=== PATIENT | female | born 1960 | race Caucasian/White ===

== ENCOUNTER → 2019-06-02 08:52 | Outpatient (CLI) | payer OTHER, SELFPAY ==
--- NOTE | ~2019-06-02 | MM_ITS ---
EXAMINATION: MM screening cheryl BI w carolyn HISTORY: Screening mammogram TECHNIQUE: Craniocaudal and mediolateral oblique 3-D tomosynthesis images were obtained and synthetic 2-D images were generated. CAD analysis was submitted and interpreted. COMPARISON: No prior mammogram is available for comparison at this institution. BREAST PARENCHYMAL COMPOSITION: There are scattered areas of fibroglandular density. FINDINGS: There is fibroglandular asymmetry, likely related to history of prior bilateral breast redu ction surgery. Comparison to prior mammogram examinations is recommended to confirm stability of the presumed postoperative fibroglandular asymmetry. There is no evidence of suspicious mass, calcificati on, or architectural distortion to suggest malignancy in either breast. There has been no suspicious interval change. IMPRESSION: 1. No mammographic evidence of malignancy; probable postoperative fibroglandular asymmetry. 2. Recommend comparison with prior mammogram examinations. BI-RADS Category 0: Incomplete: Needs additional imaging evaluation. Reviewed, dictated and finalized at location A. IC AFFAIRS MANAGER IMPRESSION: 1. No mammographic evidence of malignancy; probable postoperative fibroglandula r asymmetry. 2. Recommend comparison with prior mammogram examinations. BI-RADS Category 0: Incomplete: Needs additional imaging evaluation.
== END ==
PROVIDERS: PCP Family Medicine; Visit Provider Family Medicine
DX: Z12.31 Encounter for screening mammogram for malignant neoplasm of breast (principal); R92.8 Other abnormal and inconclusive findings on diagnostic imaging of breast
CPT/HCPCS: 77063; 77067

== ENCOUNTER 2020-02-06 00:52 | Outpatient (CLI) | payer OTHER, SELFPAY ==
[2020-02-07 03:00] LABS: SARS-CoV-2 RNA PCR Negative
== END 2020-02-06 00:53 | disposition home or self-care (01) ==
LOC: ANHCOVIDDT 00:52
PROVIDERS: PCP Family Medicine; Visit Provider Internal Medicine Gastroenterology
DX: Z01.812 Encounter for preprocedural laboratory examination (principal); Z20.828 Contact with and (suspected) exposure to other viral communicable diseases
CPT/HCPCS: 87635; C9803; U0003

== ENCOUNTER 2020-02-08 01:28 | Day surgery (SDC) | payer OTHER, SELFPAY ==
[2020-02-04 12:46] VITALS: BMI 29.2
[2020-02-08 08:37] VITALS: BP 104/62; PULSE 71; RESP 18; TEMP 35.7; O2SAT 99
--- NOTE | 2020-02-08 08:53 | WPDANESEPPF ---
Anes - Initial Pre Proc Eval Procedure: Operation Date: 02/08/20 09:30 Proposed Procedures p Screening Colonoscopy - Tono Cheng MD Date/Time: 02/08/20 08:53 Surgeon: Tono Cheng MD Pre Op Diagnosis: neoplasm screening Patient Data Age: 59 Gender: F Height: 5 ft 3 in Weight: 76 kg Last Vital Signs Temp 35.7 C L 02/08/20 08:37 Pulse 71 02/08/20 08:37 Resp 18 02/08/20 08:37 BP 104/62 02/08/20 08:37 Pulse Ox 99 02/08/20 08:37 Allergies Allergy/AdvReac Type Severity Reaction Status Date / Time No Known Allergies Allergy Severe Verified 02/08/20 08:36 Home Medications Medication Instructions Recorded Confirmed Type aspirin 81 mg chewable tablet 81 mg PO DAILY 03/06/19 02/04/20 History cholecalciferol (vitamin D3) 25 1,000 unit PO DAILY 03/06/19 02/04/20 History mcg (1,000 unit) capsule sertraline 25 mg tablet See Rx Instructions .ROUTE 12/31/19 02/04/20 Rx .COMPLEX #30 tablet Synthroid 100 mcg tablet 100 mcg PO DAILY #90 tablet NS 01/03/20 02/04/20 Rx ezetimibe 10 mg tablet 10 mg PO DAILY #90 tablet 01/03/20 02/04/20 Rx hydrochlorothiazide 12.5 mg tablet 12.5 mg PO DAILY #90 tablet 01/03/20 02/04/20 Rx omeprazole 40 mg capsule,delayed 40 mg PO DAILY #90 cap 01/03/20 02/04/20 Rx release oxybutynin chloride 5 mg tablet 5 mg PO BID-TID #90 tablet 02/04/20 Rx bupropion HCl 300 mg 24 hr tablet, See Rx Instructions .ROUTE 02/07/20 Rx extended release .COMPLEX #90 tablet Patient hx anesthesia problems: none Family hx anesthesia problems: none PMFSH Past Medical History Medical History (Updated 01/03/20 @ 16:28 by Aurelia Gordon MD) Chronic GERD Surgical History Surgical History (Updated 02/08/20 @ 09:14 by Kris Nelson MD) History of endometrial ablation Family History Family History Sibling Family history of chronic obstructive pulmonary disease Father Family history of lung cancer, Onset Age: 65 Patient's father is Mother Family history of malignant neoplasm of breast in first degree relative, Onset Age: 62 Patient's mother is Sibling Patient's sister is , Onset Age: 62 Family history of alcoholism, Onset Age: 51 Family history of chronic obstructive pulmonary disease Father Family history of lung cancer, Onset Age: 62 Mother Family history of malignant neoplasm of breast in first degree relative, Onset Age: 65 Social History Social History Smoking status: Never smoker Alcohol intake: current Drinks per week: 1 Substance use: never Substance use type: does not use Living arrangements: with family Spiritual care concerns: No Anes - Eval Final PreProcedure Day of Procedure 02/08/20 08:53 Patient weight: overweight Heart: regular rate and rhythm Lungs: clear to auscultation Airway: Mallampati scale class 1 Neurological: alert and oriented Last oral intake: >/= 8 hours ASA classification: II Emergent: no Anesthetic plan: proceed Anesthesia type and monitoring: general GIVS and standard monitoring Informed Consent: The patient's anesthetic plan and its attendant risks and benefits were discussed with the patient/family/POA. Questions were solicited and answers provided to the satisfaction of the patient/family/POA.
[2020-02-08] MEDS: LACTATED RINGERS 1,000 ML 150 ML IV CONT (08:54)
--- NOTE | 2020-02-08 09:18 | WPDGICN ---
Assessment and Plan Assessment and plan (1) Encounter for screening colonoscopy: Code(s): Z12.11 - Encounter for screening for malignant neoplasm of colon Status: Acute Assessment and Plan: Patient appears to be at average risk for colon polyps. Plan is for screening colonoscopy at this time. Last exam was 10 years ago. GI Consult Note Consult date/time: 02/08/20 09:18 HPI: Kristyn Brennan is a 59 year old female Seen in evaluation at the request of Dr. Gordon. Patient presents for screening colonoscopy. She states her current weight appetite bowel movements are normal. She denies abdominal pain. She has had no bleeding. Family history is noncontributory. Review of Systems Review of Systems: All systems reviewed & are unremarkable except as noted in HPI and below PMFSH Past Medical History Medical History (Updated 02/08/20 @ 09:19 by Tono Cheng MD) Chronic GERD Surgical History Surgical History (Updated 02/08/20 @ 09:14 by Kris Nelson MD) History of endometrial ablation Family History Family History Sibling Family history of chronic obstructive pulmonary disease Father Family history of lung cancer, Onset Age: 65 Patient's father is Mother Family history of malignant neoplasm of breast in first degree relative, Onset Age: 62 Patient's mother is Sibling Patient's sister is , Onset Age: 62 Family history of alcoholism, Onset Age: 51 Family history of chronic obstructive pulmonary disease Father Family history of lung cancer, Onset Age: 62 Mother Family history of malignant neoplasm of breast in first degree relative, Onset Age: 65 Social History Social History Smoking status: Never smoker Alcohol intake: current Drinks per week: 1 Substance use: never Substance use type: does not use Living arrangements: with family Spiritual care concerns: No Meds Home Medications and Allergies Home Medications Medication Instructions Recorded Confirmed Type aspirin 81 mg chewable tablet 81 mg PO DAILY 03/06/19 02/04/20 History cholecalciferol (vitamin D3) 25 1,000 unit PO DAILY 03/06/19 02/04/20 History mcg (1,000 unit) capsule sertraline 25 mg tablet See Rx Instructions .ROUTE 12/31/19 02/04/20 Rx .COMPLEX #30 tablet Synthroid 100 mcg tablet 100 mcg PO DAILY #90 tablet NS 01/03/20 02/04/20 Rx ezetimibe 10 mg tablet 10 mg PO DAILY #90 tablet 01/03/20 02/04/20 Rx hydrochlorothiazide 12.5 mg tablet 12.5 mg PO DAILY #90 tablet 01/03/20 02/04/20 Rx omeprazole 40 mg capsule,delayed 40 mg PO DAILY #90 cap 01/03/20 02/04/20 Rx release oxybutynin chloride 5 mg tablet 5 mg PO BID-TID #90 tablet 02/04/20 Rx bupropion HCl 300 mg 24 hr tablet, See Rx Instructions .ROUTE 02/07/20 Rx extended release .COMPLEX #90 tablet Allergies Allergy/AdvReac Type Severity Reaction Status Date / Time No Known Allergies Allergy Severe Verified 02/08/20 08:36 Vital Signs Vital Signs - 24 hr 02/08/20 08:37 Temperature 96.2 F L Pulse Rate 71 Respiratory Rate 18 Blood Pressure 104/62 Pulse Oximetry 99 Exam Narrative: Exam Narrative: Physical exam reveals patient to be alert. Vital signs stable. HEENT exam unremarkable. Lungs are clear to auscultation and percussion. Heart is without murmur or extra sounds. Abdominal exam bowel sounds are present soft nontender with no hepatosplenomegaly. Digital external rectal exam is normal.
[2020-02-08 09:49] VITALS: BP 108/62; PULSE 74; RESP 18; O2SAT 100
[2020-02-08 09:59] VITALS: BP 122/64; PULSE 64; RESP 20; O2SAT 99
[2020-02-08 10:09] VITALS: BP 128/60; PULSE 75; RESP 20; O2SAT 99
== END 2020-02-08 10:23 | disposition home or self-care (01) ==
PROVIDERS: PCP Family Medicine; Visit Provider Internal Medicine Gastroenterology
PROC: 0DJD8ZZ Inspection of Lower Intestinal Tract, Via Natural or Artificial Opening Endoscopic (ICD-10-PCS; CPT 45378; principal; 2020-02-08 09:30)
DX: Z12.11 Encounter for screening for malignant neoplasm of colon (principal); K57.30 Diverticulosis of large intestine without perforation or abscess without bleeding; K21.9 Gastro-esophageal reflux disease without esophagitis; K64.8 Other hemorrhoids
CPT/HCPCS: 45378; J2704; J7120

== ENCOUNTER → 2020-10-03 16:48 | Outpatient (CLI) | payer OTHER, SELFPAY ==
--- NOTE | ~2020-10-03 | MM_ITS ---
EXAMINATION: MM screening cheryl BI w carolyn HISTORY: Screening mammogram, family history of breast cancer in her mother. TECHNIQUE: Craniocaudal and mediolateral oblique 3-D tomosynthesis images were obtained and synthetic 2-D images were generated. CAD analysis was submitted and interpreted. COMPARISON: 06/02/2019, 04/21/2018 BREAST PARENCHYMAL COMPOSITION: There are scattered areas of fibroglandular density. FINDINGS: There is no evidence of suspicious mass, calcification, or architectural distortion to sugg est malignancy in either breast. There has been no suspicious interval change. IMPRESSION: 1. No mammographic evidence of malignancy. 2. Recommend routine screening mammography in one year. BI-RADS Category 1: Negative Reviewed, dictated and finalized at location A.
== END ==
PROVIDERS: PCP Family Medicine; Visit Provider Family Medicine
DX: Z12.31 Encounter for screening mammogram for malignant neoplasm of breast (principal)
CPT/HCPCS: 77063; 77067

== ENCOUNTER → 2022-02-16 10:24 | Outpatient (CLI) | payer OTHER, SELFPAY ==
--- NOTE | ~2022-02-16 | MM_ITS ---
EXAMINATION: MM screening cheryl BI w carolyn HISTORY: Screening TECHNIQUE: Craniocaudal and mediolateral oblique 3-D tomosynthesis images were obtained and synthetic 2-D images were generated. CAD analysis was submitted and interpreted. COMPARISON: Comparison to multiple prior studies sequentially, with oldest reviewed study dated 04/15. BREAST PARENCHYMAL COMPOSITION: Breast composed of scattered areas of fibroglandular density FINDINGS: There is no evidence of suspicious mass, calcification, or architectural distortion to sugg est malignancy in either breast. There has been no suspicious interval change. IMPRESSION: 1. No mammographic evidence of malignancy. 2. Recommend routine screening mammography in one year. BI-RADS Category 1: Negative Reviewed, dictated and finalized at location A. PLAY ENGINEER
== END ==
PROVIDERS: PCP Family Medicine; Visit Provider Family Medicine
DX: Z12.31 Encounter for screening mammogram for malignant neoplasm of breast (principal)
CPT/HCPCS: 77063; 77067

== ENCOUNTER → 2022-02-18 09:56 | Outpatient (CLI) | payer OTHER, SELFPAY ==
--- NOTE | ~2022-02-18 | DEXA_ITS ---
Bone Density Report Name: RIMMA SCHWARTZ Age: 61 Sex: Female Ethnicity: White Date of : 1960 Indication: postmenopausal; screening for osteoporosis; Referring Provider: Kranthi Choi Study: Bone densitometry was performed. Exam Date: February 18, 2022 Accession number: [id number] Bone Density: Region BMD T-score Z-score Classification AP Spine (L1-L4) 0.879 -1.5 0.0 Osteopenia Femoral Neck (Left) 0.731 -1.1 0.3 Osteopenia Total Hip (Left) 0.987 0.4 1.4 Normal Femoral Neck (Right) 0.683 -1.5 -0.1 Osteopenia Total Hip (Right) 0.936 0.0 1.0 Normal Total Hip Mean 0.962 0.2 1.2 Normal World Health Organization criteria for BMD impression classify patients as: Normal (T-score at or above -1.0), Osteopenia (T-score between -1.0 and -2.5), or Osteoporosis (T-score at or below -2.5). 10-year Fracture Risk(1): Major Osteoporotic Fracture 8.1% Hip Fracture 0.7% Reported Risk Factors: [place] (), Neck BMD=0.683, BMI=32.4 (1) FRAX(R) Version 3.08. Fracture probability calculated for an untreated patient. Fracture probability may be lower if the patient has received treatment. Clinical Information Provided by Patient: Has used the following medications: Vitamin D Patient maximum height was 63 Menopause Age: 44 No regular weight bearing exercise Drinks caffeinated beverages Onset of menses at age 13 Number of children 1 Impression: The patient has low bone mass, based on the Total Spine T-score. The patient has an estimated ten-year risk of hip fracture of 0.7% and an estimated ten-year risk of major fracture of 8.1%, based on the WHO FRAX algorithm. Discussion: BONE DENSITY IS LOW AT ONE OR MORE SKELETAL SITES. This patient's lowest T-score is low at one or more skeletal sites. It meets the World Health Organization's (WHO) criteria for ?low bone mass? (T-score between -1.0 and -2.5). The patient's 10-year risk of fracture as calculated by FRAX is less than the threshold where pharmacological therapy is recommended by the National Osteoporosis Foundation (NOF). However, all treatment decisions require clinical judgment and consideration of individual patient factors, including patient preferences, comorbidities, previous drug use, risk factors not captured in the FRAX model (e.g., frailty, falls, vitamin D deficiency, increased bone turnover, interval significant decline in bone density) and possible under or overestimation of fracture risk by FRAX. The patient should follow a healthful lifestyle (good nutrition with adequate calcium and vitamin D, and appropriate weight-bearing exercise). Follow-Up: Consider repeating this study in 2 to 3 years to reassess this patient's status, or sooner if there is some new clinical indication. Reported by: CORNELIO on 02/18/2022 10:14:00 AM.
== END ==
PROVIDERS: PCP Family Medicine; Visit Provider Physician Assistant
DX: Z78.0 Asymptomatic menopausal state (principal); M85.88 Other specified disorders of bone density and structure, other site; M85.852 Other specified disorders of bone density and structure, left thigh; M85.851 Other specified disorders of bone density and structure, right thigh
CPT/HCPCS: 77080

== ENCOUNTER 2022-08-31 10:17 | Outpatient (CLI) | payer OTHER, SELFPAY ==
[2022-08-31 11:25] LABS: Kit Draw Collected
== END 2022-08-31 10:18 | disposition home or self-care (01) ==
LOC: ANHGOSHLAB 10:18
PROVIDERS: PCP Family Medicine; Visit Provider Family Medicine
DX: R73.03 Prediabetes (principal); E03.9 Hypothyroidism, unspecified; E55.9 Vitamin D deficiency, unspecified
CPT/HCPCS: 36415

== ENCOUNTER 2023-09-09 10:00 | Outpatient (CLI) | payer OTHER, SELFPAY ==
--- NOTE | ~2023-09-09 | XR_ITS ---
Clinical Indication: Chronic cough PA and lateral views of the chest: Comparison: 04/08/2008 Findings: The lungs are clear, without evidence of focal consolidation or pleural effusion. Cardiome diastinal silhouette is within normal limits. Bones and soft tissues are unremarkable. Impression: Normal chest. Reviewed, dictated and finalized at location . Impression: Normal chest.
== END 2023-09-09 10:01 ==
PROVIDERS: PCP Family Medicine; Visit Provider Family Medicine
DX: R05.3 Chronic cough (principal)
CPT/HCPCS: 71046

== ENCOUNTER 2023-09-27 10:05 | Outpatient (CLI) | payer OTHER, SELFPAY ==
--- NOTE | ~2023-09-27 | XR_ITS ---
Left Hand Technique: PA, oblique, and lateral views were obtained. Clinical History: Osteoarthritis Findings: No acute fracture or dislocation is seen. Osseous alignment is anatomic. Joint spaces are p reserved. Soft tissues are unremarkable. Impression: Unremarkable left hand. Reviewed, dictated and finalized at location M. Impression: Unremarkable left hand.
== END 2023-09-27 10:06 | disposition home or self-care (01) ==
LOC: ANHIMG 10:07
PROVIDERS: PCP Family Medicine; Visit Provider Plastic Surgery
DX: M18.12 Unilateral primary osteoarthritis of first carpometacarpal joint, left hand (principal)
CPT/HCPCS: 73130

== ENCOUNTER 2024-03-07 10:46 | Outpatient (CLI) | payer OTHER, SELFPAY ==
--- NOTE | ~2024-03-07 | MM_ITS ---
EXAMINATION: MM screening cheryl BI w carolyn HISTORY: Screening TECHNIQUE: Craniocaudal and mediolateral oblique 3-D tomosynthesis images were obtained and synthetic 2-D images were generated. CAD analysis was submitted and interpreted. COMPARISON: Comparison to multiple prior studies sequentially, with oldest reviewed study dated 04/15. BREAST PARENCHYMAL COMPOSITION: Not dense: There are scattered areas of fibroglandular density. FINDINGS: There is no evidence of suspicious mass, calcification, or architectural distortion to sugg est malignancy in either breast. There has been no suspicious interval change. IMPRESSION: 1. No mammographic evidence of malignancy. 2. Recommend routine screening mammography in one year. BI-RADS Category 1: Negative Reviewed, dictated and finalized at location B. 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
== END 2024-03-07 10:47 | disposition home or self-care (01) ==
LOC: MICIMG 10:48
PROVIDERS: PCP Family Medicine; Visit Provider Family Medicine
DX: Z12.31 Encounter for screening mammogram for malignant neoplasm of breast (principal)
CPT/HCPCS: 77063; 77067

== ENCOUNTER 2024-09-24 08:50 | Outpatient (CLI) | payer OTHER, SELFPAY | END 2024-09-24 08:51 | disposition home or self-care (01) | LOC: ANHAUDIO 08:50 | PROVIDERS: PCP Family Medicine; Visit Provider Family Medicine | DX: H90.42 Sensorineural hearing loss, unilateral, left ear, with unrestricted hearing on the contralateral side (principal) | CPT/HCPCS: 92557; 92567 ==

== ENCOUNTER 2025-03-06 08:12 | Outpatient (CLI) | payer MEDICARE, SELFPAY ==
--- NOTE | ~2025-03-06 | DEXA_ITS ---
Bone Density Report Name: RIMMA SCHWARTZ Age: 64 Sex: Female Ethnicity: White Date of : 1960 Indication: osteopenia; Referring Provider: LUAN ALONSO Study: Bone densitometry was performed. Exam Date: March 06, 2025 Accession number: [id number] Bone Density: Region BMD T-score Z-score Classification AP Spine(L1-L4) 0.798 -2.3 -0.5 Osteopenia Femoral Neck (Left) 0.679 -1.5 0.0 Osteopenia Total Hip (Left) 0.925 -0.1 1.1 Normal Femoral Neck (Right) 0.631 -2.0 -0.4 Osteopenia Total Hip (Right) 0.862 -0.7 0.6 Normal Total Hip Mean 0.894 -0.4 0.9 Normal World Health Organization criteria for BMD impression classify patients as: Normal (T-score at or above -1.0), Osteopenia (T-score between -1.0 and -2.5), or Osteoporosis (T-score at or below -2.5). 10-year Fracture Risk(1): Major Osteoporotic Fracture 11% Hip Fracture 1.5% Reported Risk Factors: [place] (), Neck BMD=0.631, BMI=25.2 (1) FRAX(R) Version 3.08. Fracture probability calculated for an untreated patient. Fracture probability may be lower if the patient has received treatment. Previous Exams: Region Exam Age BMD T-score BMD Change BMD Change Date g/cm2 vs Baseline vs Previous AP Spine (L1-L4) 03/06/2025 64 0.798 -2.3 -0.081 (-9.2%) -0.081 (-9.2%) 02/18/2022 61 0.879 -1.5 Total Hip(Left) 03/06/2025 64 0.925 -0.1 -0.062 (-6.3%) -0.062 (-6.3%) 02/18/2022 61 0.987 0.4 Total Hip(Right) 03/06/2025 64 0.862 -0.7 -0.074 (-7.9%) -0.074 (-7.9%) 02/18/2022 61 0.936 0.0 *Denotes significance at 95% confidence level, LSC for AP Spine = 0.022 g/cm2, LSC for Total Hip = 0.027 g/cm2 Clinical Information Provided by Patient: Has used the following medications: Vitamin D Patient maximum height was 63 Menopause Age: 44 No regular weight bearing exercise Drinks caffeinated beverages Onset of menses at age 13 Number of children 1 Impression: The patient has low bone mass, based on the Total Spine T-score. The patient has an estimated ten-year risk of hip fracture of 1.5% and an estimated ten-year risk of major fracture of 11%, based on the WHO FRAX algorithm. The BMD for the AP Spine (L1-L4) decreased, changing by -9.2% since the last DXA exam. The BMD for the Total Hip(Left) decreased, changing by -6.3% since the last DXA exam. The BMD for the Total Hip(Right) decreased, changing by -7.9% since the last DXA exam. Discussion: BONE DENSITY IS LOW AT ONE OR MORE SKELETAL SITES. This patient's lowest T-score is low at one or more skeletal sites. It meets the World Health Organization's (WHO) criteria for ?low bone mass? (T-score between -1.0 and -2.5). The patient's 10-year risk of fracture as calculated by FRAX is less than the threshold where pharmacological therapy is recommended by the National Osteoporosis Foundation (NOF). However, all treatment decisions require clinical judgment and consideration of individual patient factors, including patient preferences, comorbidities, previous drug use, risk factors not captured in the FRAX model (e.g., frailty, falls, vitamin D deficiency, increased bone turnover, interval significant decline in bone density) and possible under or overestimation of fracture risk by FRAX. The patient should follow a healthful lifestyle (good nutrition with adequate calcium and vitamin D, and appropriate weight-bearing exercise). Follow-Up: Consider repeating this study in 2 years to reassess this patient's status, or sooner if there is some new clinical indication. Reported by: BELINDA on 03/06/2025 8:54:00 AM. Reviewed, dictated and finalized at location A.
--- OUTSIDE RECORDS SUMMARY | 2025-03-06 08:24 | XMS_ITS | Clinical Summary ---
Author Organization [facility] Address [address] [place] [address] Care Team Providers Care Web Developer Programmer Name Role Phone Unavailable Primary Care Provider Unavailabl e Source Comments [facility],non-owned Affiliates and Associated Physician Practices is amultiple site organization consisting of ambulatory clinics and hospital sitesin [place], [place]. This disclosure is being madepursuant to the Care Everywhere program and may not contain all information available regarding this patient. Last updated 17.[facility] Social History Tobacco Use Types Packs/Day Years Used Date Smoking Tobacco: Never Assessed Comments Unknown Sex and Gender Information Value Date Recorded Sex Assigned at Not on file Legal Sex Female 9:25 AM CDT Gender Identity Not on file Sexual Orientation Not on file Plan of Treatment Health Maintenance Due Date Last Done Comments BONE DENSITY TESTING 1960 COLOGUARD (AGES 45-75) - COL ON CA SCREENING 1960 COLON MONITORING 1960 COLONOSCOPY - COLON CA SCREENING 1960 CT COLONOGRAPHY - COLON CA SCREENING 1960 Colorectal Cancer Screening 1960 FIT - COLON CA SCREENING 1960 FLEX SIG - COLON CA SCREENING 1960 LIPID TESTING 1960 MAMMOGRAM 1960 HIV SCREENING 12/01/1974 HEPATITIS C SCREENING 11/27/1977 DTAP/TDAP/TD VACCINES (1 - Tdap) 12/01/1978 Cervical Cancer Screening 12/01/1980 PAP SMEAR 12/01/1980 PAP with HPV 12/01/1989 PNEUMOCOCCAL VACCINE 50+ (1 of 1 - PCV) 12/01/2009 ZOSTER VACCINE (1 of 2) 12/01/2009 DEPRESSION SCREENING 04/04/2024 COVID-19 VACCINE ( - 2024-2 6 season) 2024 INFLUENZA VACCINE (#1) 2024 Respiratory Syncytial Virus (RSV) Vaccine Pt: or over 60 yrs (1 - 1-dose 75+ series) 12/01/2034 HEPATITIS B VACCINE Aged Out No longe r eligible based on patient's age to complete this topic HIB VACCINE Aged Out No longer eligi ble based on patient's age to complete this topic HPV VACCINE Aged Out No longer eligi ble based on patient's age to complete this topic MENINGOCOCCAL (Group B) VACC INE SHARED DECISION-MAKING Aged Out No longer eligibl e based on patient's age to complete this topic MENINGOCOCCAL GROUPS A/C/Y/W VACCINE Aged Out No longer eligible b ased on patient's age to complete this topic Insurance [employer]
--- OUTSIDE RECORDS SUMMARY | 2025-03-06 08:24 | XMS_ITS | Clinical Summary ---
Author Organization [facility] Address [address] [place]: Epic Prelude ADT [place] [address] Care Team Providers Care Correctional Agency Director Name Role Phone Unavailable Primary Care Provider Unavailabl e Social History Tobacco Use Types Packs/Day Years Used Date Smoking Tobacco: Never Assessed Comments Unknown Sex and Gender Information Value Date Recorded Sex Assigned at Not on file Legal Sex Female 4:46 AM SPINNER HAND Gender Identity Not on file Sexual Orientation Not on file Plan of Treatment Health Maintenance Due Date Last Done Comments DTAP/TDAP/TD VACCINES (1 - Tdap) 12/01/1978 BREAST CANCER SCREENING 1999 COLORECTAL SCREENING 12/01/2004 Colorectal Cancer Screening 12/01/2004 FIT-DNA Q 3 years 12/01/2004 FIT/FOBT Q 1 year 12/01/2004 Flex Sig/CT Colonography Q 5 years 12/01/2004 PNEUMOCOCCAL VACCINE 50+ YEARS (1 of 1 - PCV) 12/02/19 10 ZOSTER VACCINE (1 of 2) 12/01/2009 INFLUENZA VACCINE (#1) 2024 OSTEOPOROSIS SCREENING 12/01/2024 RSV VACCINE (60+ or ) (1 - 1-dose 75+ series) 12/01/2034
--- OUTSIDE RECORDS SUMMARY | 2025-03-06 08:24 | XMS_ITS | Encounter Summary ---
Author Organization [facility] Address [address] [place] [address] Care Team Providers Care Landscape Designer Name Role Phone Unavailable Primary Care Provider Unavailabl e Encounter Details Date Type Department Care Team (Late st Contact Info) Description 09/28/2023 Lab Requisition [facility] - DermPath Lab [address] [place] [address] Reginald Ingram MD [facility] DERMAT[facility] [address] [place] [phone] Neoplasm of uncertain behavior of skin Social History Tobacco Use Types Packs/Day Years Used Date Smoking Tobacco: Never Assessed Comments Unknown Sex and Gender Information Value Date Recorded Sex Assigned at Not on file Legal Sex Female 9:25 AM CDT Gender Identity Not on file Sexual Orientation Not on file documented as of this encounter Plan of Treatment Not on file documented as of this encounter Procedures Procedure Name Priority Date/Time Associated Diagnosis Comments DERMATOPATHOLOGY Routine 09/28/2023 3:33 AM CDT Neoplasm of uncertain behavior of skin documented in this encounter Results * DERMATOPATHOLOGY (09/28/2023 3:33 AM CDT) Case Report Dermatopathology Report Case: [id number] Authorizing Provider: Reginald Ingram MD Collected: 09/28/2023 03:33 AM Ordering Location: [facility] - Received: 09/29/2023 07:51 AM DermPath Lab Pathologist: Annetta Galvez MD Specimen: Skin, right forearm 11:35 AM CDT DERMATOPATHOLOGY LABORATORY Final Diagnosis Specimen A. 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 The specimen consists of a shave biopsy measuring 8x8x1 mm. Jar 0. 11:35 AM CDT DERMATOPATHOLOGY LABORATORY Microscopic Description Specimen A. SKIN, right forearm: Sections show an epidermis thickened by a proliferation of keratinocytes, some of which have enlarged nuclei, with increased mitotic figures, and some neoplastic cells have pigmented cytoplasms. 11:35 AM CDT DERMATOPATHOLOGY LABORATORY Disclaimer An external and internal positive and negative controls are appropriate for the histochemical, immunohistochemical and immunofluorescence stain(s) in this case (if any), except where stated explicitly. The performance characteristics of the stain(s) cited in this report were developed and its performance characteristic determined by the Dermatopathology Laboratory at [facility], directed by Dr. Lynsey Howell. These tests need not be, and therefore are not, approved by the [place] Food and Drug Administration. The tests are used for clinical purposes. Billing Codes Specimen Charges Stain Charges 44610 1 11:35 AM CDT DERMATOPATHOLOGY LABORATORY Embedded Images 11:35 AM CDT DERMATOPATHOLOGY LABORATORY Pathology/Cytolo gy TISSUE SPECIMEN FROM SKIN / Unknown 09/28/2023 3:33 AM CDT 09/29/2023 7:51 AM CDT us Reginald Ingram MD LAB - PATHOLOGY/CYTOLOGY THAD ORDAZ Final Result DERMATOPATHOLOGY LABORATORY [facility] - Department of Dermatology [address] [place] [address], [facility] [phone] documented in this encounter Visit Diagnoses Diagnosis Neoplasm of uncertain behavior of skin documented in this encounter
--- OUTSIDE RECORDS SUMMARY | 2025-03-06 08:24 | XMS_ITS | Encounter Summary ---
Author Organization [facility] Address 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
--- OUTSIDE RECORDS SUMMARY | 2025-03-06 08:24 | XMS_ITS | Encounter Summary ---
Author Organization [facility] Address [address] [place] [address] Care Team Providers Care Pellet Press Operator Name Role Phone Unavailable Primary Care Provider Unavailabl e Encounter Details Date Type Department Care Team (Late st Contact Info) Description 08/08/2000 Outpatient Historical [facility] Jesus Briceno MD Social History Tobacco Use Types Packs/Day Years Used Date Smoking Tobacco: Never Assessed Comments Unknown Sex and Gender Information Value Date Recorded Sex Assigned at Not on file Legal Sex Female 4:46 AM BUSINESS CONTROLLER Gender Identity Not on file Sexual Orientation Not on file documented as of this encounter Plan of Treatment Not on file documented as of this encounter Visit Diagnoses Not on filedocumented in this encounter
== END 2025-03-06 08:13 | disposition home or self-care (01) ==
LOC: ANHFOHIMG 08:16
PROVIDERS: PCP Family Medicine; Visit Provider Family Medicine
DX: Z78.0 Asymptomatic menopausal state (principal); M85.88 Other specified disorders of bone density and structure, other site; M85.852 Other specified disorders of bone density and structure, left thigh; M85.851 Other specified disorders of bone density and structure, right thigh
CPT/HCPCS: 77080

== ENCOUNTER 2025-03-19 09:54 | Outpatient (CLI) | payer MEDICARE, SELFPAY ==
--- NOTE | ~2025-03-19 | MM_ITS ---
EXAMINATION: MM screening cheryl BI w carolyn HISTORY: Screening TECHNIQUE: Craniocaudal and mediolateral oblique 3-D tomosynthesis images were obtained and synthetic 2-D images were generated. CAD analysis was submitted and interpreted. COMPARISON: Comparison to multiple prior studies sequentially, with oldest reviewed study dated , 04/21/2018 BREAST PARENCHYMAL COMPOSITION: Not Dense: There are scattered areas of fibroglandular density. FINDINGS: There is no evidence of suspicious mass, calcification, or architectural distortion to suggest malignancy in either breast. IMPRESSION: 1. No mammographic evidence of malignancy. 2. Recommend routine screening mammography in one year. BI-RADS Category 1: Negative Reviewed, dictated and finalized at location A. FE[facility]ER
== END 2025-03-19 09:55 | disposition home or self-care (01) ==
LOC: MICIMG 09:54
PROVIDERS: PCP Family Medicine; Visit Provider Family Medicine
DX: Z12.31 Encounter for screening mammogram for malignant neoplasm of breast (principal)
CPT/HCPCS: 77063; 77067